=== PATIENT | female | born 1970 | race Caucasian/White ===

== ENCOUNTER 2016-09-04 09:50 | Outpatient (CLI) | payer OTHER ==
[~2016-09-04] VITALS: Ht 170.2 cm; Wt 79.5 kg
[~2016-09-04 09:50] MED LIST: ANTIVERT 12.512.5 MG PO; LAMICTAL 100MG100 MG PO; ZYRTEC 10MG10 MG PO
[2016-09-04 10:19] VITALS: BP 129/79; PULSE 69
[2016-09-04 12:10] VITALS: BP 120/69; PULSE 47; PULSE 49
[2016-09-04 12:25] VITALS: BP 119/72; PULSE 60
[2016-09-04 12:40] VITALS: BP 111/70; PULSE 60
[2016-09-04 12:55] VITALS: BP 118/76; PULSE 59; TEMP 98.4
[2016-09-04 14:42] LABS: CEREBROSPINAL TUBE #4; CSF APPEARANCE CLEAR; CSF COLOR COLORLESS
[2016-09-06 13:10] LABS: ALBUMIN CSF 17.1 mg/dL (<=27.0); CSF IGG/ALBUMIN 0.11 (<=0.21); CSF,IGG 1.8 mg/dL (<=8.1)
[2016-09-06 13:34] LABS: CSF-IGG INDEX 0.52 (<=0.85); IGG/ALBUMIN SERUM 0.21 (<=0.40)
== END 2016-09-04 13:10 | disposition home or self-care (01) ==
LOC: COL.RAD 09:50
PROVIDERS: Psychiatry & Neurology Neurology
DX: G37.9 Demyelinating disease of central nervous system, unspecified (principal)

== ENCOUNTER → 2016-10-17 | Outpatient (CLI) | payer OTHER | LOC: MHCPAIN 10:48 | DX: G89.29 Other chronic pain (principal); M54.12 Radiculopathy, cervical region; M47.812 Spondylosis without myelopathy or radiculopathy, cervical region; R51 Headache | CPT/HCPCS: G0463 ==

== ENCOUNTER → 2016-11-21 | Outpatient (CLI) | payer OTHER | LOC: MHCPAIN 10:35 | DX: G89.29 Other chronic pain (principal); M50.90 Cervical disc disorder, unspecified, unspecified cervical region; M54.12 Radiculopathy, cervical region; F17.210 Nicotine dependence, cigarettes, uncomplicated | CPT/HCPCS: G0463 ==

== ENCOUNTER → 2016-12-11 | Outpatient (CLI) | payer OTHER | LOC: MHCPAIN 08:14 | DX: M50.123 Cervical disc disorder at C6-C7 level with radiculopathy (principal) | CPT/HCPCS: J1100; Q9967 ==

== ENCOUNTER → 2016-12-26 | Outpatient (CLI) | payer OTHER | LOC: MHCPAIN 09:57 | DX: G89.29 Other chronic pain (principal); M50.122 Cervical disc disorder at C5-C6 level with radiculopathy | CPT/HCPCS: G0463 ==